=== PATIENT | female | born 1940 | race Caucasian/White ===

== ENCOUNTER 2022-01-08 19:55 | Emergency (ER) | payer MEDICARE, OTHER ==
[~2022-01-08] VITALS: Ht 157.5 cm; Wt 54.0 kg
[2022-01-08] MEDS ORDERED: LEVO88TA5 PO (21:03)
[2022-01-08] MEDS ORDERED: AMLO10TA59 PO (21:03)
[2022-01-08 21:49] LABS: HEMATOCRIT 37.9 % (31.2-41.9); MEAN CORPUSCULAR HEMOGLOBIN 30.8 uug (24.7-32.8); MEAN CORPUSCULAR VOLUME 90.2 fL (75.5-95.3); PLATELET COUNT (AUTO) 394 K/uL (179-408)
--- NOTE | 2022-01-08 21:49 | NUR ---
Xray at bedside
--- NOTE | 2022-01-08 22:51 | NUR ---
Patient discharged to home in stable condition. Written and verbal after care instructions given. Patient verbalizes understanding of instructions. Stressed follow up or return to ER for worsening s/s. pt ambulated with steady gait. denies pain. [id number]
[2022-01-08 22:58] VITALS: BP 139/63
== END 2022-01-08 22:53 | disposition home or self-care (01) ==
LOC: ER 19:59
DX: M79.89 Other specified soft tissue disorders (principal); S80.02XA Contusion of left knee, initial encounter; W22.8XXA Striking against or struck by other objects, initial encounter; Y93.H9 Activity, other involving exterior property and land maintenance, building and construction; Y92.016 Swimming-pool in single-family (private) house or garden as the place of occurrence of the external cause; E89.0 Postprocedural hypothyroidism; Z79.890 Hormone replacement therapy; Z85.850 Personal history of malignant neoplasm of thyroid; Z88.1 Allergy status to other antibiotic agents; Z88.0 Allergy status to penicillin
CPT/HCPCS: 36415; 73590; 85025; A4663